=== PATIENT | female | born 1980 | race Caucasian/White ===

== ENCOUNTER → 2016-02-29 | Outpatient (CLI) | payer BC | LOC: COL.RAD 12:43 | DX: O26.841 Uterine size-date discrepancy, first trimester (principal) ==

== ENCOUNTER 2017-01-13 08:00 | Outpatient (RCR) | payer BC | END 2017-03-13 | disposition home or self-care (01) | LOC: MKS.ESL.PT | DX: N81.4 Uterovaginal prolapse, unspecified (principal) ==